=== PATIENT | female | born 1930 | race Caucasian/White ===

== ENCOUNTER 2018-12-11 05:34 | Inpatient (IN) | payer MEDICARE ==
[2018-12-11] VITALS (7 sets, daily range): BP systolic 119–198; BP diastolic 46–70
[~2018-12-11] VITALS: Ht 157.4 cm; Wt 75.3 kg
--- NOTE | ~2018-12-11 | EKG ---
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
--- NOTE | ~2018-12-11 | EKG ---
[place], [place] ELECTROCARDIOGRAM REPORT NAME: STEVE SOUTH UNIT #: [id number] ROOM: 412 DOCTOR: DELMER DRAFT REPORT BIRTHDATE: [birth year] [facility] Test Date: 2018-12-11 Test Time: 08:25:04 Pat Name: STEVE SOUTH Department: Room: 412 Gender: F Hot Roller: : 1930 Requested By: DAVID BARBOUR Order Number: [id number] Reading MD: Cindy Atwood MD Measurements Intervals [place] Rate: 64 P: 47 PA: 210 QRS: -33 QRSD: 92 T: 110 QT: 448 QTc: 463 Interpretive Statements Sinus rhythm Ventricular premature complex Inferior infarct, old Probable anterior infarct Electronically Signed On 12-12-2018 14:44:03 PDT by Cindy Atwood MD CM:EKGRPT:ELECTROCARDIOGRAM REPORT [id number] DAVID GIVENS DRAFT REPORT DAVID BARBOUR DO
--- NOTE | ~2018-12-11 | CON ---
[place], [place] REPORT OF CONSULTATION NAME: [facility] SOUTH [facility] [id number] UNIT #: [id number] ROOM: 412 DOCTOR: KARAN DAMON MD BIRTHDATE: [birth year] DOS: 12/11/2018 REASON FOR CONSULTATION: Chest pain. HISTORY OF PRESENT ILLNESS: The patient is an 88-year-old patient with coronary artery disease, previous bypass, came in to the emergency room, had left-sided chest heaviness for about a week and also had some left arm pain which lasted a few seconds. She also has some shortness of breath, nausea, fever and chills as well as heart palpitations. She is somewhat vague in her chest pain, but is more constant pain in the left side of the chest, which is there for about a week and Cardiology consulted for her chest pain. She denies any chest pains at home, but she did have some nausea, vomiting, fever and chills prior to her admission. She was being treated for urinary tract infection. She also had elevated liver enzymes and workup is in progress. She denies any PND or orthopnea. No cough or hemoptysis. No neurologic symptoms. No bladder symptoms. She was treated with intravenous fluids and antibiotics upon her admission. REVIEW OF SYSTEMS: Review of her 10 system negative except as mentioned above. Her only complaint is chest and left arm pain and also today she had some sort of breath, nausea, vomiting, fever, and palpitations. PAST MEDICAL HISTORY: 1. Coronary artery disease, status post bypass in 2016, details unknown. 2. Hypertension. 3. Diabetes, type 2. 4. Acid reflux. 5. Renal stones. 6. Dyslipidemia. 7. Overweight. PAST SURGICAL HISTORY: 1. History of bypass surgery. 2. History of bladder suspension. 3. Hysterectomy. 4. Lithotripsy. 5. Bilateral cataract surgery. FAMILY HISTORY: Noncontributory due to her age. Father at age 89 from old age. Mother at the age 95, had a stroke and myocardial infarction. ALLERGIES: Reviewed. HOME MEDICATIONS: Reviewed. PHYSICAL EXAMINATION: VITAL SIGNS: Blood pressure 167/50, pulse 68, respiratory rate 18, weight 72.5 kg, BMI 29.3. GENERAL: Alert, comfortable, in no acute distress. HEENT: Pupils are round and equal. No jaundice. Tongue was moist and pharynx [place], [place] REPORT OF CONSULTATION NAME: STEVE SOUTH UNIT #: [id number] ROOM: 412 DOCTOR: MARISOL MURRAY,KARAN BIRTHDATE: [birth year] clear. NECK: Supple, no distended neck veins, no carotid bruit. CHEST: Symmetrical, nontender. LUNGS: Clear to auscultation bilaterally. HEART: Regular rhythm, no S3, no palpable thrills. Grade 1/6 systolic murmur. ABDOMEN: Benign, nontender. Bowel sounds normal. EXTREMITIES: Showed no edema. Distal pulses palpable. SKIN: Warm and dry. No cyanosis, no clubbing. RECTAL: Deferred. GENITOURINARY: Deferred. NEUROLOGIC: The patient is alert with good mood and affect. REVIEW OF THE DIAGNOSTIC TESTS: EKG shows sinus rhythm, first degree AV block, old anterior and inferior KS. CBC, chemistry and cardiac enzymes reviewed. IMPRESSION: 1. Chest pain, appears to be atypical. 2. Coronary artery disease, status post bypass in 2016, details unknown. 3. Urinary tract infection with symptoms of fever and chills and also temperature 101.9. 4. Hypertension. 5. Diabetes, type 2. 6. Elevated liver enzymes. RECOMMENDATIONS: 1. Continue her home cardiac medications including aspirin, beta blockers and statins. 2. Add nitro paste for her chest pain and also blood pressure. 3. Continue to cycle her enzymes. 4. Schedule her for liver scan tomorrow due to elevated liver enzymes. 5. Check 2D echo for LV function and valvular function. 6. Based on her echo findings, hospital course, and her symptoms consider Lexiscan stress test on Wednesday. No family at bedside at the time of examination. KARAN DAMON MD CM:CONSTR:REPORT OF CONSULTATION 1711 12/12/18 0223 interface
--- NOTE | ~2018-12-11 | EKG ---
[place], [place] ELECTROCARDIOGRAM REPORT NAME: STEVE SOUTH UNIT #: [id number] ROOM: 412 DOCTOR: DELMER DRAFT REPORT BIRTHDATE: [birth year] [facility] Test Date: 2018-12-11 Test Time: 11:33:47 Pat Name: STEVE SOUTH Department: Room: 412 Gender: F Academic Manager: : 1930 Requested By: DAVID BARBOUR Order Number: [id number] Reading MD: Cindy Atwood MD Measurements Intervals [place] Rate: 57 P: -7 AR: 222 QRS: -27 QRSD: 98 T: 56 QT: 464 QTc: 452 Interpretive Statements Sinus rhythm Borderline prolonged AR interval Inferior infarct, old Probable anterior infarct, old Baseline wander in lead(s) V1,V2,V3,V4,V5 Electronically Signed On 12-12-2018 14:44:21 PDT by Cindy Atwood MD CM:EKGRPT:ELECTROCARDIOGRAM REPORT [id number] 1444 DAVID GIVENS DRAFT REPORT DAVID BARBOUR DO
[~2018-12-11 05:34] MED LIST: ADVIL LIQUI-GE200 MG PO; ANTIVERT12.5 MG PO; ASPIRIN BABY; CELEBREX200 MG; CETIRIZINE5 MG PO; GERITOL COMPLET1 TAB; GLIPIZIDE; KLOR-CON 88 MEQ PO; METAMUCIL0.52 GM; METAMUCIL1 PDR PO; MICARDIS HCT 121 TA2; MICARDIS HCT 121 TA2 PO; NOVOLOG; NOVOLOG FLEX100 U/ML; NOVOLOG FLEX100 U/ML SC; OMEPRAZOLE20 MG PO; OXYBUTYNIN5 MG PO; PHENAZOPYRIDIN100 MG PO; RANITIDINE HCL300 M1; SIMVASTATIN40 MG; SMZ-TMP 800 MG-1 TA1 PO; TUMS PO; VICODIN 5/500 505 MG PO; [UNRECOGNIZED DRUG - OTHER]
[2018-12-11 06:06] LABS: BASO % 0.4 % (0.0-1.0); EOS # 0.1 10*3/uL (0.0-0.4); EOS % 0.9 % (1.0-4.0); HEMATOCRIT 39.9 % (37.0-47.0); HEMOGLOBIN 13.3 g/dl (12.0-16.0); LYMPH # 0.9 10*3/uL (1.3-4.4); LYMPH % 15.3 % (27.0-41.0); MEAN CELL VOLUME 96.6 fl (81.0-99.0); MEAN CORPUSCULAR HGB 32.2 pg (27.0-31.0); MEAN CORPUSCULAR HGB CONC 33.3 g/dl (33.0-37.0); MONO # 0.3 10*3/uL (0.1-1.0); MONO % 5.9 % (3.0-9.0); NEUT # 4.3 10*3/uL (2.3-7.9); NEUT % 77.1 % (47.0-73.0); PLATELET COUNT AUTOMATED 156 10*3/uL (130-400); RED BLOOD COUNT 4.13 10*6/uL (4.10-5.10); RED CELL DISTRI WIDTH 12.9 % (0-14.5); WHITE BLOOD COUNT 5.6 10*3/uL (4.8-10.8)
[2018-12-11 06:22] LABS: ALBUMIN 3.1 gm/dl (3.1-4.5); ALKALINE PHOSPHATASE 145 U/L (45-117); BUN 19 mg/dl (7-24); CHLORIDE 105 mmol/L (98-107); CREATININE 1.11 mg/dL (0.55-1.02); POTASSIUM 4.4 mmol/L (3.5-5.1); SGOT/AST 724 IU/L (3-35); SGPT/ALT 523 U/L (12-78); SODIUM 139 mmol/L (136-145); TOTAL PROTEIN 6.3 gm/dL (6.4-8.2)
[2018-12-11 06:39] LABS: TROPONIN I < 0.015 ng/ml (<0.045)
[2018-12-11 07:02] LABS: ACT PARTIAL THROMBO TIME 23.4 SECONDS (20.0-32.1)
[2018-12-11 08:30] LABS: BILIRUBIN 1+ (NEGATIVE); BLOOD 2+ (NEGATIVE); CLARITY CLOUDY (CLEAR); COLOR YELLOW (YELLOW); GLUCOSE TRACE (NEGATIVE); KETONE NEGATIVE (NEGATIVE); LEUKO ESTERASE 1+ (NEGATIVE); NITRITE POSITIVE (NEGATIVE); PH 5.5 (5.0-9.0); SPECIFIC GRAVITY 1.015 (1.005-1.030)
[2018-12-11 08:37] LABS: BACTERIA 4+; RBC 16-20 rbc/hpf (0-2); WBC TNTC wbc/hpf (0-5)
--- NOTE | 2018-12-11 10:20 | NUR ---
A 88, admitted to , under the services of FERNANDEZ Alba DO with a diagnosis of UTI. Chief complaint is MULT COMPLAINTS. Patient arrived via ambulatory from ER. Monitor applied. Initial assessment completed. Vital signs taken and recorded. FERNANDEZ ALBA DO notified of admission to the unit. Orders received. See assessment for past medical history, medications and allergies. Patient and/or family oriented to unit. [facility] visitation policy reviewed. Clothing/patient valuable form completed. SIMRAN GREEN
--- NOTE | 2018-12-11 12:30 | NUR ---
KAHLIL WHEELER NOTIFIED OF HOME MED REC BEING UPDATED
--- NOTE | 2018-12-11 14:00 | NUR ---
PT SLEEPING IN BED. NO SIGNS OF DISTRESS OF SHORTNESS OF BREATH. BED IN LOWEST LOCKED POSITION AND CALL LIGHT WITHIN REACH.
[2018-12-11] MEDS ORDERED: Synthroid,Levo25 MCG PO (15:05)
[2018-12-11] MEDS ORDERED: FLUOXETINE HCL10 MG PO (15:06)
[2018-12-11] MEDS ORDERED: OMEPRAZOLE D/R20 MG PO (15:06)
[2018-12-11] MEDS ORDERED: Lopressor25 MG PO (15:08)
[2018-12-11] MEDS ORDERED: LOSARTAN POTAS100 M1 PO (15:08)
[2018-12-11] MEDS ORDERED: LANTUS SOL100 UNIT/1 SC (15:11)
[2018-12-11] MEDS ORDERED: ATORVASTATIN CA40 M1 PO (15:11)
[2018-12-11] MEDS ORDERED: GABAPENTIN100 M2 PO (15:12)
[2018-12-11] MEDS ORDERED: CETIRIZINE10 MG PO (15:14)
--- NOTE | 2018-12-11 19:25 | NUR ---
PATIENT RESTING IN BED WATCHING TV. NO NEEDS MADE. BED IN LOWEST POSITION, CALL LIGHT IN REACH
[2018-12-12] VITALS: BP 179/46
--- NOTE | 2018-12-12 00:25 | NUR ---
ATTEMPTED TO CALL THE RESIDENT REGARDING BLOOD PRESSURE. NO ANSWER
--- NOTE | 2018-12-12 00:26 | NUR ---
ORDER FROM DR CHINCHILLA FOR IV HYDRALAZINE
--- NOTE | 2018-12-12 01:02 | NUR ---
IV HYDRALAZINE GIVEN PER ORDER
[2018-12-12 02:00] VITALS: BP 153/50
--- NOTE | 2018-12-12 02:07 | NUR ---
24 HR chart check completed.
[2018-12-12 06:29] LABS: BASO % 0.2 % (0.0-1.0); EOS # 0.2 10*3/uL (0.0-0.4); EOS % 4.5 % (1.0-4.0); HEMATOCRIT 36.2 % (37.0-47.0); HEMOGLOBIN 11.7 g/dl (12.0-16.0); LYMPH # 1.5 10*3/uL (1.3-4.4); MEAN CELL VOLUME 97.3 fl (81.0-99.0); MEAN CORPUSCULAR HGB 31.5 pg (27.0-31.0); MEAN CORPUSCULAR HGB CONC 32.3 g/dl (33.0-37.0); MEAN PLATELET VOLUME 11.2 fl (9.6-12.3); MONO # 0.4 10*3/uL (0.1-1.0); MONO % 10.4 % (3.0-9.0); NEUT # 1.9 10*3/uL (2.3-7.9); NEUT % 47.7 % (47.0-73.0); PLATELET COUNT AUTOMATED 123 10*3/uL (130-400); RED BLOOD COUNT 3.72 10*6/uL (4.10-5.10); RED CELL DISTRI WIDTH 13.2 % (0-14.5)
[2018-12-12 06:44] LABS: CHLORIDE 109 mmol/L (98-107); POTASSIUM 3.9 mmol/L (3.5-5.1); SODIUM 141 mmol/L (136-145)
[2018-12-12 06:56] LABS: ALBUMIN 2.8 gm/dl (3.1-4.5); ALKALINE PHOSPHATASE 148 U/L (45-117); BUN 17 mg/dl (7-24); CHOLESTEROL 118 mg/dL (<200); CREATININE 0.92 mg/dL (0.55-1.02); FREE T4 0.87 ng/dl (0.76-1.46); HDL CHOLESTEROL 52 mg/dl (40-60); LDL CHOLESTEROL 37 mg/dL (9-159); PHOSPHOROUS 3.5 mg/dL (2.5-4.9); SGOT/AST 217 IU/L (3-35); SGPT/ALT 360 U/L (12-78); TRIGLYCERIDES 145 mg/dl (<150); VLDL CHOLESTEROL 29 mg/dL (6-40)
[2018-12-12 07:35] LABS: VITAMIN D, 25-HYDROXY 22.9 ng/mL (30-100)
[2018-12-12 08:00] VITALS: BP 153/46
--- NOTE | 2018-12-12 09:00 | NUR ---
Supervisor Beater Room in to talk to patient. Patient states lives at home with alone. There are few steps in the home. Physician: none at [facility]: Home health services: none Patient's level of ADLs: INDEPENDENT Patient has working utilities: all working DME: none Follow-up physician's appointment after d/c: will be made by hospitalist nurse director upon discharge Does patient want to access PORTAL?: no Discharge plan discussed with patient, patient lives at home alone, she states she is independent in adls and ambulation, drives, patient also stated that her son from out of state will be coming home on Wednesday and will stay the summer with her, patient stated she would be going home when able and denies any home needs. DELANO DOVE
--- NOTE | 2018-12-12 09:15 | NUR ---
patient stated that she has not pcp at this time, she is looking for a new one, educated her that she will be given a list of doctors that she could choose from to have her follow up appointment made with, patient was inagreement with this, case management will follow for any needs
--- NOTE | 2018-12-12 09:24 | NUR ---
SPOKE WITH POONAM FROM [facility] IN [facility] SHE STATES SHE WILL FAX THE MEDICATION LIST,BUT SHE IS NOT SURE IF THE [facility] [place] WILL BE INCLUDED.
[2018-12-12 12:00] VITALS: BP 170/50
[2018-12-12 16:00] VITALS: BP 153/46
--- NOTE | 2018-12-12 19:13 | NUR ---
PATIENT RESTING IN BED WITH VISITOR AT BEDSIDE. NO NEEDS MADE AT THIS TIME. BED IN LOWEST POSITION, CALL LIGHT IN REACH
[2018-12-12 20:00] VITALS: BP 173/51
--- NOTE | 2018-12-12 21:18 | NUR ---
MEDICATED WITH PRN TYLENOL FOR C/O PAIN, WILL MONITOR
[2018-12-13] VITALS: BP 126/72
--- NOTE | 2018-12-13 02:50 | NUR ---
PATIENT RESTING IN BED WITH NO S/S OF DISTRESS. BED IN LOWEST POSITION, CALL LIGHT IN REACH
[2018-12-13 08:00] VITALS: BP 150/70
--- NOTE | 2018-12-13 08:20 | NUR ---
24 HR chart check completed.
--- NOTE | 2018-12-13 08:40 | NUR ---
Patient resting quietly with no c/o discomfort. Respirations easy and regular. Vital signs stable. No overt distress. SCHUYLER PACHECO
--- NOTE | 2018-12-13 08:48 | NUR ---
COZAAR GIVEN FOR BP OF 160/80 PRIOR TO STRESS TEST. PT IS INCONSISTENT WITH HOME MEDICATIONS AND TX R/T TO CURRENT POC. REORIENTED NEEDED.
--- NOTE | 2018-12-13 09:00 | NUR ---
case management visits with patient, patient states she will be going home when able and denies any home needs
[2018-12-13 09:34] LABS: ALBUMIN 2.8 gm/dl (3.1-4.5); ALKALINE PHOSPHATASE 145 U/L (45-117); BUN 15 mg/dl (7-24); CHLORIDE 112 mmol/L (98-107); CREATININE 0.81 mg/dL (0.55-1.02); POTASSIUM 4.5 mmol/L (3.5-5.1); SGOT/AST 70 IU/L (3-35); SGPT/ALT 231 U/L (12-78); SODIUM 143 mmol/L (136-145); TOTAL PROTEIN 6.3 gm/dL (6.4-8.2)
--- NOTE | 2018-12-13 10:00 | NUR ---
INFORMED CONSENT OBTAINED FOR LEXISCAN NUCLEAR STRESS TEST WITH DR. EVANS. RESTING EKG SINUS ROBERTO WITH A RESTING HR OF 54 WITH BP OF 128/60. LUNGS CLEAR WITH SPO2 OF 96% ON ROOM AIR. PT COMPLETED A 1:00 LEXISCAN PROTOCOL RECEIVING LEXISCAN 0.4 MG IV OVER 10 SECONDS. HAD NO CHEST PAIN OR ANY EKG CHANGES. DID C/O DIZZINESS THAT WAS RELIEVED IN RECOVERY. HAD A PEAK HR OF 78 WITH BP OF 120/66. LAST RECOVERY HR OF 76 WITH BP OF 122/66. AWAITING SCANNING IN STABLE CONDITION.
[2018-12-13 12:00] VITALS: BP 156/72
[2018-12-13] MEDS ORDERED: AMINOPHYLLIN200 MG PO (14:03)
[2018-12-13] MEDS ORDERED: AMLODIPINE BESYL5 MG PO (14:03)
[2018-12-13 16:00] VITALS: BP 154/57
--- NOTE | 2018-12-13 18:25 | NUR ---
DR HUNTLEY ANSWERED FOR KAHLIL CARBON ACCOUNTANT, AND WAS NOTIFIED THAT STRESS TEST RESULT IS BACK, AND THAT KAHLIL WANTED NOTIFIED FOR POSSIBLE DISCHARGE.
[2018-12-13 20:00] VITALS: BP 158/51
--- NOTE | 2018-12-13 20:22 | NUR ---
PATIENT RESTING IN BED WATCHING TV. NO NEEDS MADE. BED IN LOWEST POSITION, CALL LIGHTIN REACH
--- NOTE | 2018-12-13 21:18 | NUR ---
MEDICATED WITH PRN TYLENOL FOR C/O PAIN. WILL MONITOR
--- NOTE | 2018-12-13 22:47 | NUR ---
24 HR chart check completed.
[2018-12-14] VITALS: BP 174/50
--- NOTE | 2018-12-14 01:30 | NUR ---
PATIENT RESTING IN BED WITH NO S/S OF DISTRESS. BED IN LOWEST POSITION, CALL LIGHT IN REACH
[2018-12-14 08:00] VITALS: BP 150/80; BP 170/70
[2018-12-14 08:23] LABS: ALBUMIN 2.8 gm/dl (3.1-4.5); BILIRUBIN, DIRECT 0.2 mg/dL (0.0-0.2); TOTAL PROTEIN 6.3 gm/dL (6.4-8.2)
--- NOTE | 2018-12-14 10:50 | NUR ---
PT LEAVING IN CARE OF PA TO THE FRONT DOOR.
[2019-02-02] MEDS ORDERED: AUGMENTIN 500500 MG PO (11:57)
[2019-02-02] MEDS ORDERED: AMLODIPINE BESY10 MG PO (11:57)
== END 2018-12-14 10:50 | disposition home or self-care (01) | DRG 871 ==
LOC: ED 05:34 → 4E 09:31 → EDHOLD 09:31 → 4E 09:43
PROVIDERS: Emergency Medicine; Internal Medicine; Registered Nurse; ADMIT Internal Medicine
PROC: 3E073KZ Introduction of Other Diagnostic Substance into Coronary Artery, Percutaneous Approach (ICD-10-PCS; principal; 2018-12-13)
PROC: 4A02XM4 Measurement of Cardiac Total Activity, External Approach (ICD-10-PCS; principal; 2018-12-13)
DX: A41.9 Sepsis, unspecified organism (principal); N17.0 Acute kidney failure with tubular necrosis; N30.00 Acute cystitis without hematuria; E44.0 Moderate protein-calorie malnutrition; M94.0 Chondrocostal junction syndrome [Tietze]; R74.0 Nonspecific elevation of levels of transaminase and lactic acid dehydrogenase [LDH]; E78.5 Hyperlipidemia, unspecified; I34.1 Nonrheumatic mitral (valve) prolapse; I25.10 Atherosclerotic heart disease of native coronary artery without angina pectoris; G25.81 Restless legs syndrome; E86.0 Dehydration; E11.22 Type 2 diabetes mellitus with diabetic chronic kidney disease; N18.3 Chronic kidney disease, stage 3 (moderate); B96.20 Unspecified Escherichia coli [E. coli] as the cause of diseases classified elsewhere; K21.9 Gastro-esophageal reflux disease without esophagitis; K44.9 Diaphragmatic hernia without obstruction or gangrene; R00.1 Bradycardia, unspecified; I12.9 Hypertensive chronic kidney disease with stage 1 through stage 4 chronic kidney disease, or unspecified chronic kidney disease; E11.65 Type 2 diabetes mellitus with hyperglycemia; Z79.4 Long term (current) use of insulin; Z88.8 Allergy status to other drugs, medicaments and biological substances; Z91.040 Latex allergy status; Z90.710 Acquired absence of both cervix and uterus; Z82.61 Family history of arthritis; Z83.3 Family history of diabetes mellitus; Z82.49 Family history of ischemic heart disease and other diseases of the circulatory system; Z82.3 Family history of stroke; Z95.1 Presence of aortocoronary bypass graft; Z87.442 Personal history of urinary calculi; Z79.82 Long term (current) use of aspirin; Z79.899 Other long term (current) drug therapy; Z83.1 Family history of other infectious and parasitic diseases; Z68.30 Body mass index [BMI] 30.0-30.9, adult

== ENCOUNTER → 2018-12-21 | Outpatient (CLI) | payer MEDICARE ==
[~2018-12-21] MED LIST changes: +AMINOPHYLLIN200 MG PO; +AMLODIPINE BESY10 MG PO; +AMLODIPINE BESYL5 MG PO; +ATORVASTATIN CA40 M1 PO; +AUGMENTIN 500500 MG PO; +CETIRIZINE10 MG PO; +FLUOXETINE HCL10 MG PO; +GABAPENTIN100 M2 PO; +LANTUS SOL100 UNIT/1 SC; +LOSARTAN POTAS100 M1 PO; +Lopressor25 MG PO; +OMEPRAZOLE D/R20 MG PO; +Synthroid,Levo25 MCG PO
== END | disposition home or self-care (01) ==
LOC: RESCLI 01:19
DX: Z09 Encounter for follow-up examination after completed treatment for conditions other than malignant neoplasm (principal); I25.10 Atherosclerotic heart disease of native coronary artery without angina pectoris; R42 Dizziness and giddiness; K21.9 Gastro-esophageal reflux disease without esophagitis; E03.9 Hypothyroidism, unspecified; F32.5 Major depressive disorder, single episode, in full remission; I10 Essential (primary) hypertension; E11.65 Type 2 diabetes mellitus with hyperglycemia; E78.2 Mixed hyperlipidemia; G62.9 Polyneuropathy, unspecified; J30.2 Other seasonal allergic rhinitis; N30.01 Acute cystitis with hematuria; R74.0 Nonspecific elevation of levels of transaminase and lactic acid dehydrogenase [LDH]; Z76.89 Persons encountering health services in other specified circumstances; Z79.4 Long term (current) use of insulin; Z79.899 Other long term (current) drug therapy

== ENCOUNTER → 2019-02-23 | Outpatient (CLI) | payer MEDICARE | END | disposition home or self-care (01) | LOC: RESCLI 00:34 | DX: Z09 Encounter for follow-up examination after completed treatment for conditions other than malignant neoplasm (principal); I25.10 Atherosclerotic heart disease of native coronary artery without angina pectoris; R42 Dizziness and giddiness; K21.9 Gastro-esophageal reflux disease without esophagitis; E03.9 Hypothyroidism, unspecified; F32.5 Major depressive disorder, single episode, in full remission; I10 Essential (primary) hypertension; G62.9 Polyneuropathy, unspecified; J30.2 Other seasonal allergic rhinitis; N30.01 Acute cystitis with hematuria; E11.65 Type 2 diabetes mellitus with hyperglycemia; E78.2 Mixed hyperlipidemia; Z79.899 Other long term (current) drug therapy ==

== ENCOUNTER → 2019-03-16 | Outpatient (CLI) | payer MEDICARE ==
[2019-03-16 14:25] LABS: BASO # 0.1 10*3/uL (0.0-0.1); BASO % 1.5 % (0.0-1.0); EOS # 0.3 10*3/uL (0.0-0.4); EOS % 5.6 % (1.0-4.0); HEMATOCRIT 42.2 % (37.0-47.0); HEMOGLOBIN 13.7 g/dl (12.0-16.0); LYMPH % 42.4 % (27.0-41.0); MEAN CELL VOLUME 98.6 fl (81.0-99.0); MEAN CORPUSCULAR HGB CONC 32.5 g/dl (33.0-37.0); MONO # 0.5 10*3/uL (0.1-1.0); MONO % 9.9 % (3.0-9.0); NEUT # 1.9 10*3/uL (2.3-7.9); NEUT % 40.2 % (47.0-73.0); PLATELET COUNT AUTOMATED 179 10*3/uL (130-400); RED BLOOD COUNT 4.28 10*6/uL (4.10-5.10); RED CELL DISTRI WIDTH 13.3 % (0-14.5); WHITE BLOOD COUNT 4.7 10*3/uL (4.8-10.8)
[2019-03-16 14:35] LABS: ALBUMIN 3.4 gm/dl (3.1-4.5); CREATININE 1.11 mg/dL (0.55-1.02); POTASSIUM 4.5 mmol/L (3.5-5.1); TOTAL PROTEIN 7.1 gm/dL (6.4-8.2)
[2019-03-17 10:07] LABS: CREATININE,URINE 35.8 mg/dL (Not Estab.)
== END | disposition home or self-care (01) ==
LOC: LAB 13:12
PROVIDERS: Student in an Organized Health Care Education/Training Program
DX: E11.65 Type 2 diabetes mellitus with hyperglycemia (principal)

== ENCOUNTER → 2019-03-29 | Outpatient (CLI) | payer MEDICARE | END | disposition home or self-care (01) | LOC: RESCLI 01:01 | DX: I25.10 Atherosclerotic heart disease of native coronary artery without angina pectoris (principal); R42 Dizziness and giddiness; K21.9 Gastro-esophageal reflux disease without esophagitis; F32.5 Major depressive disorder, single episode, in full remission; I10 Essential (primary) hypertension; G62.9 Polyneuropathy, unspecified; J30.2 Other seasonal allergic rhinitis; E11.65 Type 2 diabetes mellitus with hyperglycemia; E78.2 Mixed hyperlipidemia; E03.9 Hypothyroidism, unspecified; R80.1 Persistent proteinuria, unspecified; Z79.899 Other long term (current) drug therapy ==

== ENCOUNTER → 2019-05-17 | Day surgery (SDC) | payer MEDICARE ==
[~2019-05-17] VITALS: Ht 157.4 cm; Wt 68.0 kg
[~2019-05-17] MED LIST changes: +ASPIRIN CHILDRE81 MG PO; +INVOKANA100 M1 PO
--- NOTE | ~2019-05-17 | O ---
[place], [place] OPERATIVE NOTE NAME: STEVE SOUTH UNIT #: [id number] ROOM: DOCTOR: YANCY MURRAY,USHA BIRTHDATE: [birth year] DOS: 05/17/2019 INDICATIONS: The patient has presented with chief complaint of retained stone in the common duct and status post previous ERCP stone extraction and common duct stenting at the present time, status post cholecystectomy. PROCEDURE: Today's procedure part of investigation is ERCP and removal of retained common duct stent and balloon dilation of papilla and balloon sweep of common duct. PREMEDICATION: Propofol. SCOPE: Olympus side-viewing duodenoscope. REPORT: After putting the patient in left lateral position and application of lubricant to the scope, the scope was introduced. Thereafter, under direct visualization, advanced through the length of esophagus into gastric pouch into duodenal bulb. Existing stent was identified, snared, and orally extracted. At this stage, the patient was re-scoped back to the papilla of Vater. A cannulization of common duct was undertaken, position was verified. Guidewire was advanced to left hepatic radicle and balloon size 12 was advanced over it and papilla of Vater was dilated to size 12. There is a periampullary diverticulum as well. Papilla was dilated and multiple sweep of common duct was done, sludge was extracted minimally. The patient extubated and tolerated the procedure well. IMPRESSION: Retained common duct stent, status post removal, ERCP, papilla dilation, balloon sweep of common duct. PLAN AND DISCUSSION: Observation. Follow up as an outpatient. Thank you very much indeed. USHA HAINES MD CM:OPRECORD:OPERATIVE NOTE 0840 2 USHA HAINES MD 05/17/19852 interface
[2019-05-17 07:15] VITALS: BP 150/53
[2019-05-17 08:22] VITALS: BP 138/48
[2019-05-17 08:37] VITALS: BP 148/54
[2019-05-17 08:52] VITALS: BP 144/72
== END | disposition home or self-care (01) ==
LOC: SDC 05-12 08:45
DX: K80.50 Calculus of bile duct without cholangitis or cholecystitis without obstruction (principal); I25.10 Atherosclerotic heart disease of native coronary artery without angina pectoris; I10 Essential (primary) hypertension; E11.9 Type 2 diabetes mellitus without complications; K21.9 Gastro-esophageal reflux disease without esophagitis; F41.9 Anxiety disorder, unspecified; F32.9 Major depressive disorder, single episode, unspecified; J45.909 Unspecified asthma, uncomplicated; M19.90 Unspecified osteoarthritis, unspecified site; I25.2 Old myocardial infarction; Z90.49 Acquired absence of other specified parts of digestive tract; Z98.890 Other specified postprocedural states; Z95.5 Presence of coronary angioplasty implant and graft; Z79.899 Other long term (current) drug therapy; Z88.8 Allergy status to other drugs, medicaments and biological substances; Z82.61 Family history of arthritis; Z82.3 Family history of stroke; Z83.3 Family history of diabetes mellitus; Z82.49 Family history of ischemic heart disease and other diseases of the circulatory system

== ENCOUNTER → 2020-01-04 | Outpatient (CLI) | payer MEDICARE | END | disposition home or self-care (01) | LOC: RESCLI 15:03 | DX: I25.10 Atherosclerotic heart disease of native coronary artery without angina pectoris (principal); I10 Essential (primary) hypertension; E11.65 Type 2 diabetes mellitus with hyperglycemia; G62.9 Polyneuropathy, unspecified; F32.5 Major depressive disorder, single episode, in full remission; K21.9 Gastro-esophageal reflux disease without esophagitis; J30.2 Other seasonal allergic rhinitis; R42 Dizziness and giddiness; E78.2 Mixed hyperlipidemia; E03.9 Hypothyroidism, unspecified; E55.9 Vitamin D deficiency, unspecified; Z90.49 Acquired absence of other specified parts of digestive tract; Z90.710 Acquired absence of both cervix and uterus; Z98.890 Other specified postprocedural states; Z88.8 Allergy status to other drugs, medicaments and biological substances ==

== ENCOUNTER → 2020-02-13 | Outpatient (CLI) | payer MEDICARE ==
[2020-02-13 15:05] LABS: BASO % 0.6 % (0.0-1.0); EOS # 0.3 10*3/uL (0.0-0.4); EOS % 7.3 % (1.0-4.0); HEMATOCRIT 37.2 % (37.0-47.0); LYMPH # 2.1 10*3/uL (1.3-4.4); LYMPH % 44.2 % (27.0-41.0); MEAN CELL VOLUME 96.9 fl (81.0-99.0); MEAN CORPUSCULAR HGB 31.3 pg (27.0-31.0); MEAN CORPUSCULAR HGB CONC 32.3 g/dl (33.0-37.0); MEAN PLATELET VOLUME 11.1 fl (9.6-12.3); MONO # 0.5 10*3/uL (0.1-1.0); MONO % 10.7 % (3.0-9.0); NEUT # 1.7 10*3/uL (2.3-7.9); PLATELET COUNT AUTOMATED 144 10*3/uL (130-400); RED BLOOD COUNT 3.84 10*6/uL (4.10-5.10); WHITE BLOOD COUNT 4.7 10*3/uL (4.8-10.8)
[2020-02-13 15:34] LABS: ALBUMIN 3.3 gm/dl (3.1-4.5); ALKALINE PHOSPHATASE 61 U/L (45-117); BUN 19 mg/dl (7-24); CHLORIDE 109 mmol/L (98-107); CHOLESTEROL 131 mg/dL (<200); CREATININE 1.02 mg/dL (0.55-1.02); HDL CHOLESTEROL 49 mg/dl (40-60); LDL CHOLESTEROL 42 mg/dL (9-159); POTASSIUM 4.6 mmol/L (3.5-5.1); SGOT/AST 15 IU/L (3-35); SGPT/ALT 26 U/L (12-78); SODIUM 138 mmol/L (136-145); TOTAL PROTEIN 6.8 gm/dL (6.4-8.2); TRIGLYCERIDES 198 mg/dl (<150); VLDL CHOLESTEROL 40 mg/dL (6-40)
[2020-02-13 15:55] LABS: VITAMIN D, 25-HYDROXY 26.6 ng/mL (30-100)
== END | disposition home or self-care (01) ==
LOC: LAB 14:30
PROVIDERS: Student in an Organized Health Care Education/Training Program
DX: E11.65 Type 2 diabetes mellitus with hyperglycemia (principal); E03.9 Hypothyroidism, unspecified; E78.2 Mixed hyperlipidemia; E55.9 Vitamin D deficiency, unspecified; G62.9 Polyneuropathy, unspecified

== ENCOUNTER → 2020-02-16 | Outpatient (CLI) | payer MEDICARE | END | disposition home or self-care (01) | LOC: RESCLI | DX: H90.3 Sensorineural hearing loss, bilateral (principal); K21.9 Gastro-esophageal reflux disease without esophagitis; E03.9 Hypothyroidism, unspecified; I10 Essential (primary) hypertension; I25.10 Atherosclerotic heart disease of native coronary artery without angina pectoris; E11.65 Type 2 diabetes mellitus with hyperglycemia; F32.5 Major depressive disorder, single episode, in full remission; G62.9 Polyneuropathy, unspecified; Z79.4 Long term (current) use of insulin; Z95.1 Presence of aortocoronary bypass graft ==

== ENCOUNTER → 2020-05-06 | Outpatient (CLI) | payer MEDICARE | END | disposition home or self-care (01) | LOC: RESCLI 02:55 | PROVIDERS: ATTEND Internal Medicine Nephrology | DX: H90.3 Sensorineural hearing loss, bilateral (principal); E11.65 Type 2 diabetes mellitus with hyperglycemia; I10 Essential (primary) hypertension; F32.5 Major depressive disorder, single episode, in full remission; E03.9 Hypothyroidism, unspecified; K21.9 Gastro-esophageal reflux disease without esophagitis; I25.10 Atherosclerotic heart disease of native coronary artery without angina pectoris; E78.2 Mixed hyperlipidemia; J30.2 Other seasonal allergic rhinitis; E55.9 Vitamin D deficiency, unspecified; G62.9 Polyneuropathy, unspecified; R42 Dizziness and giddiness; Z79.4 Long term (current) use of insulin; Z95.1 Presence of aortocoronary bypass graft; Z79.899 Other long term (current) drug therapy; Z98.890 Other specified postprocedural states ==